=== PATIENT | male | born 1965 | race Caucasian/White ===

== ENCOUNTER 2023-12-26 10:09 | Outpatient (AMB) | payer OTHER, SELFPAY ==
--- NOTE | 2023-12-26 10:10 | A.OFFPC_ITS ---
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 Required: No Accompanied by: Self / Same As Patient Allergies No Known Allergies Allergy (Unverified 12/26/23 10:13) Medication List - Last Reconciled 12/26/23 by Melanie Fraga MD multivitamin 1 tab PO DAILY Tobacco use date assessed: 12/26/23 Dental Screening Dental Screen Date: 12/26/23 Did you have a dental visit in the last 12 months?: No Did you have a dental problem in the last 6 months where you did not have access to dental care?: No Was dental information given to patient?: Yes HPI 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 dizzy 6 month usually before eating breakfast. state occ night sweats, RUQ pain 1 year intermittent no N no v no diet starting it. decline colon test referral for now [facility] Medical History (Updated 12/26/23 @ 10:48 by Melanie Fraga MD) Skin cancer, basal cell Surgical History (Updated 12/26/23 @ 10:28 by Melanie Fraga MD) Hernia, inguinal, right Fracture of wrist Social History (Updated 12/26/23 @ 10:31 by Melanie Fraga MD) Housing: Apartment Alcohol intake: current Comment: once a week 3 beers Patient Tobacco Use Status: Current everyday Tobacco user Tobacco use type: Cigarette Cigarettes Per Day: 7 Years Smoked: VAPING start 11/2023, smoked for 20 years and 5 a day e-Cigarette/Vaping Use: Currently Using (Trying to switch from cigarettes to vaping.) service: No Current occupational status: employed Current occupation: [employer] Cognitive needs: No Hearing needs: No Vision needs: No (Only reading glasses) Questionnaire PHQ-9 Over the last 2 weeks, how often have you been bothered by any of the following problems? 1. Little interest or pleasure in doing things: not at all 2. Feeling down, depressed, or hopeless: not at all 3. Trouble falling or staying asleep, or sleeping too much: several days 4. Feeling tired or having little energy: several days 5. Poor appetite or overeating: not at all 6. Feeling bad about yourself - or that you are a failure or have let yourself or your family down: not at all 7. Trouble concentrating on things, such as reading the newspaper or watching television: not at all 8. Moving or speaking so slowly that other people could have noticed. Or the opposite - being so fidgety or restless that you have been moving around a lot more than usual: not at all 9. Thoughts that you would be better off or of hurting yourself in some way: not at all Total score: 2 49611 - PHQ-9 Billing: Yes Source: Developed by Drs. Sriram Veliz, Fara Rush, Niels Manning and colleagues, with an educational tete from [employer]. Thrive Questionnaire Date Thrive assessed: 12/26/23 I am a: Patient What is your living situation today?: I have a steady place to live Within the past 12 months, did the food you bought not last and you didn't have the money to get more?: Often true Within the past 12 months, did you worry whether your food would run out before you got money to buy more?: Often true Do you have trouble paying for medicines?: No Do you have trouble getting transportation to medical appointments?: No Do you have trouble paying your heating and electricity bill?: No Do you have trouble taking care of your child, family member or friend?: Yes Do you have trouble with day-to-day activities such as bathing, preparing meals, shopping, managing finances, etc.?: No Are you currently unemployed and looking for a job?: Yes Are you interested in more education?: No Please select the resources that you would like help with: Utilities Currently or been in a relationship where the following occur: No concerns reported THRIVE Score: 2 AUDIT C Alcohol Use Questionnaire (AUDIT-C) 1. How often do you have a drink containing alcohol?: 2-4 times a month 2. How many drinks containing alcohol do you have on a typical day when you are drinking?: 1 or 2 3. How often do you have six or more drinks on one occasion?: Never Total Score: 2 PETRA-7 AMB Questionnaire PETRA-7 Date PETRA - 7 assessed: 12/26/23 Feeling nervous, anxious, or on edge: 1 = Several days Not being able to stop or control worryin = Several days Worrying too much about different things: 1 = Several days Trouble relaxin = Several days Being so restless that it is hard to sit still: 1 = Several days Becoming easily annoyed or irritable: 1 = Several days Feeling afraid as if something awful might happen: 0 = Not at all Total PETRA-7 score (0-4 normal; 5-9 mild; 10-14 moderate; 15-21 severe): 6 Source: Developed by Drs. Sriram Veliz, Fara Rush, Niels Manning and colleagues, with an educational tete from [employer]. PETRA-7 Assessment Billing PETRA-7 Assessment Tool: PETRA-7 Assessment 99771 Review of Systems Const Denies poor appetite and Denies weakness Eyes Denies no additional complaints ENT Reports Normal hearing present, Denies dizziness, Denies nasal congestion, Denies tinnitus and Denies sore throat Card Denies chest pain, Denies syncope, Denies rapid heart rate and Denies dyspnea Resp Denies cough and Denies dyspnea GI Denies change in stool character, Reports constipation, Denies diarrhea, Denies nausea and Denies vomiting Denies dysuria and Denies urinary frequency Neuro Reports Normal hearing present, Denies confusion, Denies dizziness, Denies syncope and Denies weakness Psych Denies confusion Physical exam (Primary Care) Vital Signs: Last Vital Signs Pulse 114 H 12/26/23 10:11 BP 132/92 H 12/26/23 10:11 Pulse Ox 92 12/26/23 10:11 Oxygen Delivery Method Room Air 12/26/23 10:11 BMI result Body Mass Index 22.4 Tobacco/Smoking Status: Tobacco use Status Tobacco use date assessed 12/26/23 12/26/23 10:19 Patient Tobacco Use Status Current everyday Tobacco 12/26/23 10:19 Tobacco use type Cigarette 12/26/23 10:19 e-Cigarette/Vaping Use Currently Using (Trying to 12/26/23 10:19 switch from cigarettes to vaping.) PHQ-9: PHQ-9 Score PHQ-9: Total score 2 12/26/23 10:19 Thrive Assessment: Date of Thrive Assessment Date Thrive assessed 12/26/23 12/26/23 10:19 Currently or been in a relationship where the following occur: No concerns reported Const General: alert and awake; No confusion Orientation/consciousness: No confusion HENMT Head: Yes normocephalic Ears: external ears normal and TM's normal bilaterally Face and sinus: Yes normal facial exam Mouth: moist mucous membranes Throat: Yes tonsils normal Eyes Conjunctivae: conjunctivae normal Pupils: Equal, round and reactive pupils present and Pupil accommodation reflex normal Direct Ophthalmoscopy: normal light reflex Neck Neck: No lymphadenopathy Thyroid: Thyroid normal Chest Chest palpation & inspection: normal inspection of the chest Resp Effort & Inspection: normal respiratory effort and no audible wheezes Auscultation: clear to auscultation bilaterally, no crackles, no wheezes and lung sounds not diminished Cardio Rate: regular rate Rhythm: regular rhythm Peripheral pulses: radial pulses present and dorsalis pedis present GI Other: guaiac neg prostate N Palpation (GI): no masses Auscultation: normal bowel sounds and normoactive bowel sounds Male General Exam: Yes normal external exam Back/Spine/Pelvis Back/spine/pelvis image: 2 1. 3 cm mass noted Skin General skin exam: no rashes or lesions noted Rashes: no rashes Neuro General: deep tendon reflexes 2+ bilaterally and No confusion Cranial nerves: Yes Equal, round and reactive pupils present, Yes Midline tongue present, Yes Normal hearing present and Yes Ability to bilaterally elevate shoulders present Cognition (Neuro): normal cognition Gait exam (Neuro): Normal gait present Motor exam (neuro): 5/5 motor strength present throughout Deep tendon reflexes (DTR's): Right brachioradialis reflex intensity grade: 2+, Left brachioradialis reflex intensity grade: 2+, Right patellar reflex intensity grade: 2+ and Left patellar reflex intensity grade: 2+ Extrem General: No edema Assessment and Plan Assessment & Plan (1) Annual physical exam: Code(s): Z00.00 - Encounter for general adult medical examination without abnormal findings (2) Lipoma: Comment: l hip area Code(s): D17.9 - Benign lipomatous neoplasm, unspecified Plan: reassurance and advised changes will need referal to surgeon (3) RUQ abdominal pain: Code(s): R10.11 - Right upper quadrant pain Plan: will do US to do Orders: Orders 2 Comprehensive Met. Panel Today Z00.00 - Encounter for general adult medical examination without abnormal findings Thyroid Stimulating Hormone Today Z00.00 - Encounter for general adult medical examination without abnormal findings Lipid Panel Today E78.00 - Pure hypercholesterolemia, unspecified, Z00.00 - Encounter for general adult medical examination without abnormal findings Vitamin B12 and Folate Today Z00.00 - Encounter for general adult medical examination without abnormal findings ECG 12 lead EKG Today Z00.00 - Encounter for general adult medical examination without abnormal findings Complete Blood Count Auto Diff Today Z00.00 - Encounter for general adult medical examination without abnormal findings Free T4 (Free Thyroxine) Today Z00.00 - Encounter for general adult medical examination without abnormal findings Prostate Specific Antigen Scr Today Z00.00 - Encounter for general adult medical examination without abnormal findings UA CC w/rflx Micro + Cult Today R30.0 - Dysuria, Z00.00 - Encounter for general adult medical examination without abnormal findings US abdomen complete Today R10.11 - Right upper quadrant pain, R79.89 - Other specified abnormal findings of blood chemistry Coding Level of Care Code New Pt Prev Care 40-64y(61707) Diagnoses Annual physical exam Z00.00 Lipoma D17.9 RUQ abdominal pain R10.11 Additional Codes PETRA-7 Assessment Billing - PETRA-7 Assessment Tool: PETRA-7 Assessment 47770 ([id number])
[2023-12-26 10:11] VITALS: BP 132/92; PULSE 114; O2SAT 92; BMI 22.4
[2023-12-26 10:24] VITALS: BP 120/80
== END 2023-12-26 11:01 | disposition home or self-care (01) ==
PROVIDERS: PCP Internal Medicine; Visit Provider Internal Medicine
DX: Z00.00 Encounter for general adult medical examination without abnormal findings (principal); D17.9 Benign lipomatous neoplasm, unspecified; R10.11 Right upper quadrant pain

== ENCOUNTER → 2023-12-26 10:09 | Outpatient (BNVA) | payer OTHER, SELFPAY | PROVIDERS: PCP Internal Medicine; Visit Provider Internal Medicine | DX: Z00.00 Encounter for general adult medical examination without abnormal findings (principal); D17.9 Benign lipomatous neoplasm, unspecified; R10.11 Right upper quadrant pain | CPT/HCPCS: 96127; 99386 ==

== ENCOUNTER 2024-01-02 10:08 | Outpatient (REF) | payer OTHER, SELFPAY ==
--- NOTE | ~2024-01-02 | US_ITS ---
EXAMINATION: US ABDOMEN COMPLETE CLINICAL INFORMATION: Elevated LFTs, right upper quadrant pain. COMPARISON: None available. TECHNIQUE: Real-time imaging of the abdominal viscera. FINDINGS: PANCREAS: The visualized portions of the pancreas are unremarkable but a large portion of the gland is obscured by bowel gas. ABDOMINAL AORTA: The proximal, mid, and distal segments are normal in caliber. INFERIOR VENA CAVA: Visualized portions are normal. LIVER: The liver is probably normal in size. The liver contour is normal. There is diffuse increased liver parenchymal echogenicity, consistent with hepatic steatosis. No focal hepatic lesion. There is no intrahepatic biliary duct dilatation seen. GALLBLADDER: Layering gallstones are present with the largest measuring 1.2 cm. The gallbladder is otherwise unremarkable without wall thickening or pericholecystic fluid. COMMON BILE DUCT: Normal in caliber measuring 0.4 cm in diameter. RIGHT KIDNEY: Normal. No hydronephrosis. No renal calculi or focal parenchymal lesions. The kidney measures 10.3 cm in maximum dimension. LEFT KIDNEY: Normal. No hydronephrosis. No renal calculi or focal parenchymal lesions. The kidney measures 10.6 cm in maximum dimension. SPLEEN: Normal. The spleen measures 7.9 cm in maximum dimension. FREE FLUID: None. US/US abdomen complete IMPRESSION: 1. Cholelithiasis without evidence of cholecystitis. 2. Hepatic steatosis. Electronically signed by: Julio Arteaga MD 02/22/2024 12:44 PM [facility]
== END 2024-01-02 10:09 | disposition home or self-care (01) ==
LOC: HO.US 10:08
PROVIDERS: PCP Internal Medicine; Visit Provider Internal Medicine
DX: R79.89 Other specified abnormal findings of blood chemistry (principal); R10.11 Right upper quadrant pain
CPT/HCPCS: 76700

== ENCOUNTER 2024-02-09 11:23 | Outpatient (REF) | payer OTHER, SELFPAY ==
--- NOTE | 2024-02-09 11:28 | ECG_ITS ---
Test Reason : GEN ADULT MED EXAM Blood Pressure : / mmHG Vent. Rate : 095 BPM Atrial Rate : 095 BPM P-R Int : 146 ms QRS Dur : 092 ms QT Int : 344 ms P-R-T Axes : 065 073 066 degrees QTc Int : 432 ms Normal sinus rhythm Normal ECG No previous ECGs available Referred By: Melanie Fraga Electronically Signed By:GRADY BRADY
[2024-02-09 11:47] LABS: MANUAL DIFF FLAG NO
[2024-02-09 12:32] LABS: Basophils Absolute Auto 0.1 X10*3/uL (0.0-0.2); Basophils Percent Auto 0.7 % (0-2); Eosinophils Absolute Auto 0.6 X10*3/uL (0.0-0.4); Eosinophils Percent Auto 5.2 % (0-4); Hematocrit 47.3 % (42.0-52.0); Hemoglobin 15.8 g/dl (14.0-18.0); Imm Gran Abs Auto 0.05 X10*3/uL (0.00-0.03); Imm Gran Pct Auto 0.4 % (0.0-0.4); Lymphocytes Absolute Auto 2.6 X10*3/uL (1.2-4.9); Lymphocytes Percent Auto 23.1 % (20-40); Mean Corpuscular HGB Conc 33.4 g/dl (31.0-36.0); Mean Corpuscular Hemoglobin 31.2 pg (27.0-33.0); Mean Corpuscular Volume 93.5 fL (80.0-98.0); Mean Platelet Volume 9.3 fL (9.4-12.4); Monocytes Absolute Auto 0.7 X10*3/uL (0.1-1.2); Monocytes Percent Auto 6.3 % (2-11); Neutrophils Absolute Auto 7.2 x10*3/uL (2.0-8.3); Neutrophils Percent Auto 64.3 % (45-73); Platelet Count 357 X10*3/uL (160-400); Red Blood Count 5.06 X10*6/uL (4.60-5.80); Red Cell Distribution Width 13.2 % (11.0-16.0); White Blood Count 11.3 X10*3/uL (4.8-10.8)
[2024-02-09 13:33] LABS: Alanine Aminotransferase 21 U/L (0-40); Albumin Level 4.5 g/dL (3.5-5.0); Alkaline Phosphatase 65 U/L (39-117); Anion Gap 16 (12-20); Aspartate Amino Transferase 30 U/L (5-37); Bilirubin Total 0.4 mg/dL (0.0-1.0); Blood Urea Nitrogen 12 mg/dL (9-16); Calcium 10.1 mg/dL (8.4-10.2); Carbon Dioxide 24 mmol/L (22-29); Chloride 104 mmol/L (96-108); Cholesterol 190 mg/dL (<200); Estimated Glomerular Filt Rate > 60; Glucose Random 91 mg/dL (60-115); HDL Cholesterol 53 mg/dL (>40); LDL Cholesterol Calculated 101 mg/dL (<100); Potassium 4.2 mmol/L (3.3-5.1); Sodium 140 mmol/L (135-145); Total Protein 7.2 g/dL (6.5-8.0); Triglycerides 183 mg/dL (<150)
[2024-02-09 13:50] LABS: Free T4 (Free Thyroxine) 1.02 ng/dL (0.71-1.85); Thyroid Stimulating Hormone 3.43 uIU/mL (0.32-4.0)
[2024-02-09 14:03] LABS: Folate > 20.0 ng/mL (> or = 4.0); Prostate Specific Antigen Scr 1.53 ng/mL (<0.05-4.0); Vitamin B12 305 pg/mL (200-900)
== END 2024-02-09 11:24 | disposition home or self-care (01) ==
LOC: HO.LAB 11:23
PROVIDERS: PCP Internal Medicine; Visit Provider Internal Medicine
DX: Z00.00 Encounter for general adult medical examination without abnormal findings (principal); E78.00 Pure hypercholesterolemia, unspecified
CPT/HCPCS: 36415; 80053; 80061; 82607; 82746; 84153; 84439; 84443; 85025; 93005

== ENCOUNTER → 2024-02-09 11:28 | Outpatient (BNV) | payer OTHER, SELFPAY | PROVIDERS: PCP Internal Medicine; Visit Provider Internal Medicine | DX: E78.00 Pure hypercholesterolemia, unspecified (principal) | CPT/HCPCS: 93010 ==

== ENCOUNTER 2024-03-12 10:13 | Outpatient (AMB) | payer OTHER, SELFPAY ==
--- NOTE | 2024-03-12 10:16 | A.OFFVIS_ITS ---
Vital Signs 03/12/24 10:20 Height 6 ft Weight 174 lb BMI 23.6 BP 151/73 H Blood Pressure Location Rt brachial Position Sitting Pulse 120 H Intake Visit Reasons: Calculus of GB Intake Note: Patient referred by pcp Dr. Fraga for calculus of gallbladder. Noticed about 8m ago. Patient c/o: on and off pain, inflamed stomach, vomiting diarrhea, nausea. ABD US: 01-02-2024. 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 He has epigastric/right upper quadrant pain radiographically his back that happened several hours after meals. He has associated nausea and occasional vomiting. He eventually sought his medical doctor who ordered an ultrasound demonstrated cholelithiasis. Patient otherwise has relatively regular bowel habits. He has never been jaundiced before. 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 Cognitive needs: No Hearing needs: No Vision needs: No (Only reading glasses) Physical Exam Vital Signs: Last Vital Signs Pulse 120 H 03/12/24 10:20 BP 151/73 H 03/12/24 10:20 BMI result Body Mass Index 23.6 Eyes Other: Anicteric Chest Other: Chest breath sounds bilaterally, HS 1 in 2 GI Other: Abdomen is soft, benign Assessment & Plan Assessment & Plan (1) Recurrent biliary colic: Code(s): K80.50 - Calculus of bile duct without cholangitis or cholecystitis without obstruction Category: Surgical Plan Risks, benefits, and alternatives of laparoscopic possible open cholecystectomy reviewed with the patient and included but not limited to bleeding, infection, recurrence of symptoms, numbness, pain, scarring, bowel or bile duct injury or leak and the patient wishes to proceed. All questions answered. Arrangements will be made for this on a day which is convenient for him. Coding Level of Care Code New Pt Level 5 (37248) Diagnoses Recurrent biliary colic K80.50
[2024-03-12 10:20] VITALS: BP 151/73; PULSE 120; BMI 23.6
== END 2024-03-12 10:29 | disposition home or self-care (01) ==
PROVIDERS: PCP Internal Medicine; Referring Provider Internal Medicine; Visit Provider Surgery
DX: K80.50 Calculus of bile duct without cholangitis or cholecystitis without obstruction (principal)
CPT/HCPCS: 99204

== ENCOUNTER → 2024-03-12 10:13 | Outpatient (BNVA) | payer OTHER, SELFPAY | PROVIDERS: PCP Internal Medicine; Referring Provider Internal Medicine; Visit Provider Surgery | DX: K80.50 Calculus of bile duct without cholangitis or cholecystitis without obstruction (principal) | CPT/HCPCS: 99202 ==

== ENCOUNTER 2024-03-28 05:38 | Day surgery (SDC) | payer OTHER, SELFPAY ==
[2024-03-27 06:44] VITALS: BMI 23.7
--- NOTE | 2024-03-27 08:02 | MHC.SHP ---
Pre-Procedural Eval Section A - 24 Hr Update-Section A only Date of Service: 03/28/24 The patient is an INPATIENT: No Changes since office visit: No Cold of Flu in the past 2 weeks, No New Medical Problems, No Changes in Medication and No Patient answered all questions Section B - Complete if H&P > 30 days Chief Complaint: Calculus of bile duct without cholangitis or saúl Allergies: Allergies Allergy/AdvReac Type Severity Reaction Status Date / Time No Known Allergies Allergy Unverified 03/12/24 10:18 Review of Systems Sugical H&P ROS: Negative: Constitution, Cardiovascular, Respiratory, Neurological, Psychiatric, Hem-Onc, Allergic/Immunologic, Gastrointestinal, Genitourinary, Musculoskeletal, Integumentary, Endocrine and Eyes/Ears/Nose/Throat Exam Surgical H&P Exam: Normal: HEENT, Normal: Heart, Normal: Lungs, Normal: Extremities, Normal: Abdomen, Normal: Skin and Normal: Neurological Plan I have reviewed the history and physical and performed a pertinent physical examination on my patient. No changes have occurred unless specified. Time Spent With Patient Time: Total time managing care of this patient today ____ minutes.
--- NOTE | 2024-03-27 10:34 | P.CONAN_ITS ---
Documented by User: Yessica Connell NP 03/27/24 10:35 HPI - Anesthesia Eval Consult details Narrative: 58yo M for Cholecystectomy Laparoscopic,possible open PMFSH Active Problems Active Problems: All Active Problems Recurrent biliary colic (Acute) Hepatic steatosis (Acute) Cholelithiasis (Acute) Lipoma (Acute) RUQ abdominal pain (Acute) Annual physical exam (Acute) Past Medical History Medical History Skin cancer, basal cell Surgical History Surgical History History of mandibular surgery Hernia, inguinal, right Fracture of wrist Social History Social History Housing: Apartment Alcohol intake: current Alcohol intake frequency: holidays/special occasions only Comment: once a week 3 beers Patient Tobacco Use Status: Current everyday Tobacco user Tobacco use type: Cigarette Cigarettes Per Day: 7 Years Smoked: VAPING start 11/2023, smoked for 20 years and 5 a day e-Cigarette/Vaping Use: Currently Using (Trying to switch from cigarettes to vaping.) Have you been hit, kicked, punched, or otherwise hurt by someone within the past year? 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 Cognitive needs: No Hearing needs: No Vision needs: No (Only reading glasses) Meds Allergies Allergy/AdvReac Type Severity Reaction Status Date / Time No Known Allergies Allergy Unverified 03/12/24 10:18 Home Medications ?Medication ?Instructions ?Recorded ?Confirmed ?Last Taken ?Type multivitamin 1 tab PO DAILY 12/26/23 03/28/24 03/27/24 History Exam Height,Weight and Vital Signs: Height 6 ft Weight 79.379 kg Pertinent Lab Results Pertinent Lab Results: Laboratory Tests 02/09/24 11:45 WBC 11.3 H RBC 5.06 Hgb 15.8 Hct 47.3 Plt Count 357 Sodium 140 Potassium 4.2 Chloride 104 Carbon Dioxide 24 BUN 12 Creatinine 1.03 Narrative Narrative: EKG 02/2024 Vent. Rate : 095 BPM Atrial Rate : 095 BPM P-R Int : 146 ms QRS Dur : 092 ms QT Int : 344 ms P-R-T Axes : 065 073 066 degrees QTc Int : 432 ms Normal sinus rhythm Normal ECG No previous ECGs available Assessment and Plan Assessment Anesthesia Assessment: Chart Reviewed Documented by User: Romy Adamson MD 03/28/24 07:34 [facility] Past Medical History Medical History Skin cancer, basal cell Family History Family history of problems with anesthesia: No Surgical History Surgical History History of mandibular surgery Hernia, inguinal, right Fracture of wrist History of Problems with Anesthesia: No Social History Social History Housing: Apartment Alcohol intake: current Alcohol intake frequency: holidays/special occasions only Comment: once a week 3 beers Patient Tobacco Use Status: Current everyday Tobacco user Tobacco use type: Cigarette Cigarettes Per Day: 7 Years Smoked: VAPING start 11/2023, smoked for 20 years and 5 a day e-Cigarette/Vaping Use: Currently Using (Trying to switch from cigarettes to vaping.) Have you been hit, kicked, punched, or otherwise hurt by someone within the past year? 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 Cognitive needs: No Hearing needs: No Vision needs: No (Only reading glasses) Meds Allergies Allergy/AdvReac Type Severity Reaction Status Date / Time No Known Allergies Allergy Unverified 03/12/24 10:18 Home Medications ?Medication ?Instructions ?Recorded ?Confirmed ?Last Taken ?Type multivitamin 1 tab PO DAILY 12/26/23 03/28/2424 History Exam Airway Mallampati Class: II TM Dist: >3cm Neck ROM: Full Heart: rrr Lungs: cta Assessment and Plan Assessment Anesthesia Assessment: Anesthesia Plan Discussed Final Anesthetic Review Family History of Problems with Anesthesia: No History of Problems with Anesthesia: No NPO: Yes ASA Class: II Final Preanesthetic Review: No Changes in Pt Med Stat, Meds/Allgs Chart Reviewed, Consent Obtained/Reviewed and Anes Risks/Benef Reviewed Patient Risk: Low Procedure Risk: Low Anesthetic Plan Anesthetic Plan: GA Disposition: Standard PACU
[2024-03-28] VITALS (7 sets, daily range): BP systolic 123–161; BP diastolic 73–101; PULSE 51–77; RESP 16–20; TEMP 36.3–36.9; O2SAT 97–99; BMI 24.0
[2024-03-28] MEDS: Lactated Ringers 1,000 ML 100 ML IVCONT (06:28)
--- NOTE | 2024-03-28 08:41 | W.PM.OPN ---
Operative Note Operative Note Date of Service: 03/28/24 Narrative: Preoperative diagnosis: [] Symptomatic gallbladder Postop diagnosis: [] The same Procedure [] laparoscopic cholecystectomy Surgeon: [] Mina Contract Negotiation Manager: [] Victor M Type of Anesthesia: [] General Indication for surgery: [] Gallbladder with omental adhesions to it. Moderately intrahepatic gallbladder. Findings: [] Patient brought to the operating room, placed on operative table supine position, after an adequate level of general anesthesia was induced, the patient's abdomen was prepped and draped in usual sterile fashion. Using a supraumbilical curvilinear incision, Stout technique was used to insufflate abdominal cavity to 15 mm of CO2. Upper midline and right subcostal ports were placed under direct laparoscopic view, and the patient placed in reverse Trendelenburg position, and tilted to the left. Findings were as noted above. Gallbladder was grasped using laparoscopic graspers and retracted superiorly and laterally. Soft omental adhesions were swept off the gallbladder were the hilum was approached. Common bile duct was identified and preserved throughout the procedure. Cystic artery and cystic duct were each identified, circumferentially skeletonized, traced directly into the gallbladder, and critical view obtained. Each was clipped proximally x2, distally x1, and transected . The gallbladder which was moderately intrahepatic was then cauterized from the gallbladder fossa using Bovie. Specimen placed in an Endo-Catch bag, a retrieved through the umbilical port. Abdominal cavity was copiously irrigated and secured hemostasis. All ports removed under direct laparoscopic view. Wounds were closed in the following manner; umbilical wound is fascia reapproximated using interrupted 0 Vicryl sutures. Skin wounds were closed using subcuticular 4-0 Vicryl sutures followed by Steri-Strips and sterile dressings. Wounds were infiltrated 0.5% Marcaine at completion. Sponge, needle, and instrument counts reported correct. Patient tolerated the procedure well and emerged from anesthesia stable condition. EBL minimal
[2024-03-28] MEDS: fentaNYL citrate/PF 100 MCG/2 ML VIAL 25 MCG IVPUSH ×2 (08:49→09:04)
== END 2024-03-28 10:02 | disposition home or self-care (01) ==
PROVIDERS: PCP Internal Medicine; Visit Provider Surgery
PROC: 0FT44ZZ Resection of Gallbladder, Percutaneous Endoscopic Approach (ICD-10-PCS; CPT 47562; principal; 2024-03-28 07:30)
DX: K80.10 Calculus of gallbladder with chronic cholecystitis without obstruction (principal); K82.8 Other specified diseases of gallbladder; Q44.1 Other congenital malformations of gallbladder; Z85.828 Personal history of other malignant neoplasm of skin; Z98.890 Other specified postprocedural states; F17.210 Nicotine dependence, cigarettes, uncomplicated
CPT/HCPCS: 47562; 88304; J0131; J0690; J1100; J1596; J1885; J2003; J2405; J2704; J2710; J2795; J3010

== ENCOUNTER → 2024-03-28 05:38 | Outpatient (BNV) | payer OTHER, SELFPAY | PROVIDERS: PCP Internal Medicine; Visit Provider Surgery | DX: K80.20 Calculus of gallbladder without cholecystitis without obstruction (principal) | CPT/HCPCS: 47562 ==

== ENCOUNTER 2024-04-08 11:33 | Outpatient (AMB) | payer OTHER, SELFPAY ==
--- NOTE | 2024-04-08 11:34 | A.OFFVIS_ITS ---
Intake Visit Reasons: S/P lap saúl Intake Note: Patient here s/p laparoscopic cholecystectomy. Reports incisions healing well. Patient c/o: taking rx pain meds as needed. Pain level 04/19. Surgery: 03-28-2024 Hand Rug Cleaner Required: No Accompanied by: Self / Same As Patient Allergies No Known Allergies Allergy (Unverified 04/08/24 11:36) HPI Comments Details: Patient was status post laparoscopic cholecystectomy. He is doing well. Starting a diet. Having regular bowel habits. It is increasing the tibial level. He is minimal incisional discomfort. Patient was a left hip lipoma which she would like to have addressed as well. [facility] Medical History (Updated 03/29/24 @ 17:41 by Melanie Fraga MD) Skin cancer, basal cell Surgical History (Updated 04/08/24 @ 13:51 by Lionel Enriquez MD) Recurrent biliary colic (03/28/24) History of mandibular surgery Hernia, inguinal, right Fracture of wrist Social History Housing: Apartment Alcohol intake: current Alcohol intake frequency: holidays/special occasions only Comment: once a week 3 beers Patient Tobacco Use Status: Current everyday Tobacco user Tobacco use type: Cigarette Cigarettes Per Day: 7 Years Smoked: VAPING start 11/2023, smoked for 20 years and 5 a day e-Cigarette/Vaping Use: Currently Using (Trying to switch from cigarettes to vaping.) service: No Current occupational status: employed Current occupation: [employer] Cognitive needs: No Hearing needs: No Vision needs: No (Only reading glasses) Physical Exam Eyes Other: Anicteric GI Other: Abdomen is soft, benign. All wounds clean dry and intact healing well Extrem Other: Patient has a left lateral hip soft tissue mass measuring roughly 4 x 3 cm consistent with a lipoma Assessment & Plan Assessment & Plan (1) Status post laparoscopic cholecystectomy: Code(s): Z90.49 - Acquired absence of other specified parts of digestive tract Category: Surgical (2) Lipoma: Code(s): D17.9 - Benign lipomatous neoplasm, unspecified Category: Surgical Plan Patient was been given local instructions regarding continued convalescence from his hernia repair including avoiding strenuous activities next few weeks time. Patient will follow-up in few weeks time for excision of his left hip lipoma in the office. All questions answered. Patient was see me as noted above were p.r.n.. Coding Level of Care Code Tele New Pt Level 4 (29813) Global (52433) Diagnoses Status post laparoscopic cholecystectomy Z90.49 Lipoma D17.9
== END 2024-04-08 11:44 | disposition home or self-care (01) ==
PROVIDERS: PCP Internal Medicine; Visit Provider Surgery
DX: Z90.49 Acquired absence of other specified parts of digestive tract (principal); D17.9 Benign lipomatous neoplasm, unspecified
CPT/HCPCS: 99024

== ENCOUNTER → 2024-04-08 11:33 | Outpatient (BNVA) | payer OTHER, SELFPAY | PROVIDERS: PCP Internal Medicine; Visit Provider Surgery | DX: Z09 Encounter for follow-up examination after completed treatment for conditions other than malignant neoplasm (principal); Z90.49 Acquired absence of other specified parts of digestive tract | CPT/HCPCS: 99212 ==

== ENCOUNTER 2024-04-09 14:08 | Outpatient (AMB) | payer OTHER, SELFPAY ==
[2024-04-09 14:13] VITALS: BP 118/74; PULSE 84; O2SAT 96; BMI 23.4
--- NOTE | 2024-04-09 14:13 | MHC.PC.OV ---
Vital Signs 04/09/24 14:13 Height 6 ft Weight 172 lb 6 oz BMI 23.4 BP 118/74 Blood Pressure Location Lt brachial Position Sitting Pulse 84 Pulse Source Pulse Oximeter Pulse Oximetry (%) 96 Oxygen Delivery Method Room Air Intake Visit Reasons: RUQ pain Allergies No Known Allergies Allergy (Verified 04/09/24 14:16) Tobacco use date assessed: 04/09/24 Dental Screening Dental Screen Date: 04/09/24 Did you have a dental visit in the last 12 months?: No Did you have a dental problem in the last 6 months where you did not have access to dental care?: No Was dental information given to patient?: Patient declined HPI RUQ pain HPI Details The patient is a 58-year-old male presenting with post-cholecystectomy follow-up and evaluation of a lipoma. The patient underwent gallbladder removal due to previous symptoms and reports an improvement in health post-surgery, notably an absence of heart pain that was previously present. He experiences minimal post-surgical pain which has been managed with hydrocodone, although he uses it sparingly to avoid constipation. He was advised about potential dietary impacts on bowel movements due to absence of bile storage, specifically an increase in diarrhea with high-fat meals, which he is currently avoiding. The patient reports having discontinued fast food and fried food, and relies minimally on pizza and soda, maintaining dietary modifications to manage hepatic steatosis revealed during prior ultrasound indicating fat in the liver. He is scheduled to have a benign lipoma removed from his thigh on the as it was one of the reasons for his consultation. Recent laboratory evaluations showed no anemia with good platelet count, and optimal cholesterol levels with LDL at 101, HDL at 53, and triglycerides slightly elevated at 183. B12, folic acid, and thyroid function are within normal limits. The patient states he feels well and his recent EKG results were normal. He consciously maintains a healthy lifestyle avoiding alcohol and processed food to manage his hepatic steatosis. The patient also confirms he does not participate in flu or COVID vaccinations. [facility], [facility] Medical History Skin cancer, basal cell Surgical History Recurrent biliary colic (03/28/24) History of mandibular surgery Hernia, inguinal, right Fracture of wrist Social History (Reviewed 04/09/24 @ 14:16 by СЕРГЕЙ Ortiz Housing: Apartment Alcohol intake: current Alcohol intake frequency: holidays/special occasions only Comment: once a week 3 beers Patient Tobacco Use Status: Current everyday Tobacco user Tobacco use type: Cigarette Cigarettes Per Day: 7 Years Smoked: VAPING start 11/2023, smoked for 20 years and 5 a day e-Cigarette/Vaping Use: Currently Using (Trying to switch from cigarettes to vaping.) service: No Current occupational status: employed Current occupation: [employer] Cognitive needs: No Hearing needs: No Vision needs: No (Only reading glasses) Questionnaire PHQ-9 Over the last 2 weeks, how often have you been bothered by any of the following problems? 1. Little interest or pleasure in doing things: not at all 2. Feeling down, depressed, or hopeless: not at all 3. Trouble falling or staying asleep, or sleeping too much: several days 4. Feeling tired or having little energy: several days 5. Poor appetite or overeating: not at all 6. Feeling bad about yourself - or that you are a failure or have let yourself or your family down: not at all 7. Trouble concentrating on things, such as reading the newspaper or watching television: not at all 8. Moving or speaking so slowly that other people could have noticed. Or the opposite - being so fidgety or restless that you have been moving around a lot more than usual: not at all 9. Thoughts that you would be better off or of hurting yourself in some way: not at all Total score: 2 54029 - PHQ-9 Billing: Yes Source: Developed by Drs. Sriram Veliz, Fara Rush, Niels Manning and colleagues, with an educational tete from [employer]. Thrive Questionnaire Date Thrive assessed: 04/09/24 I am a: Patient What is your living situation today?: I have a steady place to live Within the past 12 months, did the food you bought not last and you didn't have the money to get more?: Often true Within the past 12 months, did you worry whether your food would run out before you got money to buy more?: Often true Do you have trouble paying for medicines?: No Do you have trouble getting transportation to medical appointments?: No Do you have trouble paying your heating and electricity bill?: No Do you have trouble taking care of your child, family member or friend?: Yes Do you have trouble with day-to-day activities such as bathing, preparing meals, shopping, managing finances, etc.?: No Are you currently unemployed and looking for a job?: Yes Are you interested in more education?: No Please select the resources that you would like help with: Utilities Currently or been in a relationship where the following occur: No concerns reported THRIVE Score: 2 AUDIT C Alcohol Use Questionnaire (AUDIT-C) 1. How often do you have a drink containing alcohol?: 2-4 times a month 2. How many drinks containing alcohol do you have on a typical day when you are drinking?: 1 or 2 3. How often do you have six or more drinks on one occasion?: Never Total Score: 2 PETRA-7 AMB Questionnaire PETRA-7 Date PETRA - 7 assessed: 04/09/24 Feeling nervous, anxious, or on edge: 1 = Several days Not being able to stop or control worryin = Several days Worrying too much about different things: 1 = Several days Trouble relaxin = Several days Being so restless that it is hard to sit still: 1 = Several days Becoming easily annoyed or irritable: 1 = Several days Feeling afraid as if something awful might happen: 0 = Not at all Total PETRA-7 score (0-4 normal; 5-9 mild; 10-14 moderate; 15-21 severe): 6 Source: Developed by Drs. Sriram Veliz, Fara Rush, Niels Manning and colleagues, with an educational tete from [employer]. PETRA-7 Assessment Billing PETRA-7 Assessment Tool: PETRA-7 Assessment 71845 Physical exam (Primary Care) Vital Signs: Last Vital Signs Pulse 84 04/09/24 14:13 BP 118/74 04/09/24 14:13 Pulse Ox 96 04/09/24 14:13 Oxygen Delivery Method Room Air 04/09/24 14:13 BMI result Body Mass Index 23.4 Tobacco/Smoking Status: Tobacco use Status Tobacco use date assessed 04/09/24 04/09/24 14:17 Patient Tobacco Use Status Current everyday Tobacco 04/09/24 14:17 Tobacco use type Cigarette 04/09/24 14:17 e-Cigarette/Vaping Use Currently Using (Trying to 04/09/24 14:17 switch from cigarettes to vaping.) PHQ-9: PHQ-9 Score PHQ-9: Total score 2 04/09/24 14:17 Thrive Assessment: Date of Thrive Assessment Date Thrive assessed 04/09/24 04/09/24 14:17 Currently or been in a relationship where the following occur: No concerns reported Const General: alert; No acute distress Eyes Conjunctivae: conjunctivae normal Resp Auscultation: clear to auscultation bilaterally Cardio Rate: regular rate Rhythm: regular rhythm GI Inspection: Yes normal to inspection Extrem General: Yes normal to inspection and No edema Coding Level of Care Code Est Pt Level 4 (76652) Diagnoses Status post laparoscopic cholecystectomy Z90.49 Lipoma D17.9 Hepatic steatosis K76.0 Additional Codes PETRA-7 Assessment Billing - PETRA-7 Assessment Tool: PETRA-7 Assessment 14140 ([id number]) PHQ-9 - 58268 - PHQ-9 Billing: Yes ([id number]) Assessment & Plan Assessment & Plan (1) Status post laparoscopic cholecystectomy: Code(s): Z90.49 - Acquired absence of other specified parts of digestive tract Category: Surgical Plan: dicusssion about low fat diet (2) Lipoma: Code(s): D17.9 - Benign lipomatous neoplasm, unspecified Category: Surgical Plan: ff up with the surgeon (3) Hepatic steatosis: Code(s): K76.0 - Fatty (change of) liver, not elsewhere classified Category: Medical Plan: low fat diet and exercise Plan - Post-cholecystectomy state: Continue monitoring bowel movement's response to dietary intake. Instruct the patient to avoid high-fat foods to prevent diarrhea. - Hepatic steatosis: Encourage continued healthy diet avoiding fatty and processed foods, support weight management strategies to mitigate progression. - Lipoma of the thigh: Scheduled for surgical removal on the ; no acute interventions required before that. - Hypertriglyceridemia: Reinforce dietary counseling with emphasis on reduced intake of triglyceride-raising foods. - Ensure follow-up for full physical examination as part of ongoing health maintenance. - Discuss and encourage the patient on the importance of vaccination during upcoming flu season along with ongoing COVID-19 considerations. Medications: Discontinued hydrocodone-acetaminophen 5-325 mg Partial Fill upon patient request. Discontinued Reason: Duplicate 1 tab PO Q4-6H PRN 30 tabs 0RF pain
== END 2024-04-09 14:33 | disposition home or self-care (01) ==
PROVIDERS: PCP Internal Medicine; Visit Provider Internal Medicine
DX: Z90.49 Acquired absence of other specified parts of digestive tract (principal); D17.9 Benign lipomatous neoplasm, unspecified; K76.0 Fatty (change of) liver, not elsewhere classified

== ENCOUNTER 2024-04-22 09:19 | Outpatient (REF) | payer OTHER, SELFPAY | END 2024-04-22 09:20 | disposition home or self-care (01) | LOC: HO.LNP 09:19 | PROVIDERS: PCP Internal Medicine; Visit Provider Surgery | DX: D17.24 Benign lipomatous neoplasm of skin and subcutaneous tissue of left leg (principal) | CPT/HCPCS: 11404; 88304; 99212 ==

== ENCOUNTER 2024-04-22 09:19 | Outpatient (AMB) | payer OTHER, SELFPAY ==
--- NOTE | 2024-04-22 09:24 | A.OFFVIS_ITS ---
Vital Signs 04/22/24 09:25 Height 6 ft Weight 172 lb BMI 23.3 BP 120/76 Blood Pressure Location Rt brachial Position Sitting Pulse 82 Intake Visit Reasons: excision lipoma Intake Note: Patient here for lipoma excision on Lt hip. 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 Risks, benefits, alternatives of the procedure reviewed with the patient included but not limited to bleeding, infection, recurrence, numbness, pain, scarring the patient wished to proceed. All questions answered. Consent site. [facility] Medical History Skin cancer, basal cell Surgical History Recurrent biliary colic (03/28/24) History of mandibular surgery Hernia, inguinal, right Fracture of wrist Social History Housing: Apartment Alcohol intake: current Alcohol intake frequency: holidays/special occasions only Comment: once a week 3 beers Patient Tobacco Use Status: Current everyday Tobacco user Tobacco use type: Cigarette Cigarettes Per Day: 7 Years Smoked: VAPING start 11/2023, smoked for 20 years and 5 a day e-Cigarette/Vaping Use: Currently Using (Trying to switch from cigarettes to vaping.) service: No Current occupational status: employed Current occupation: [employer] Cognitive needs: No Hearing needs: No Vision needs: No (Only reading glasses) Physical Exam Vital Signs: Last Vital Signs Pulse 82 04/22/24 09:25 BP 120/76 04/22/24 09:25 BMI result Body Mass Index 23.3 Office Procedures Excision Details: After appropriate positioning, patient underwent 1% lidocaine Betadine prep of the left hip area lipoma. A longitudinal incision made over this mass and carried down through skin, subcutaneous tissue, were very deeply situated lipoma measuring roughly 4 x 3 cm was uneventfully enucleated. Specimen sent to pathology. Wound was irrigated, secured hemostasis, and closed using running subcuticular 3-0 Vicryl suture followed by Steri-Strips and sterile dressings. Patient tolerated procedure well. 53082-ypncg/arms/legs 3.1-4cm Procedure code (CPT) selection complete Office Meds lidocaine 1 %-epinephrine 1:100,000 injection solution Performing Provider: Lionel Enriquez MD Performing Location: [facility] [place] [facility] [place] [facility] Administered by: Lionel Enriquez MD on 04/22/24 09:57 Dose Route Admin Location Dispensed Lot Number Expiration Date NDC Electrical Checkout Mechanic 10 mL Infiltration 10 mL Assessment & Plan Assessment & Plan (1) Lipoma: Code(s): D17.9 - Benign lipomatous neoplasm, unspecified Category: Surgical Plan: Patient was been given local instructions including ice of the wound, may shower in 2 days, Tylenol or Motrin for pain, and will otherwise follow-up as directed or p.r.n.. Orders: Orders AMB Excision Today .9 - Benign lipomatous neoplasm, unspecified Medications: New lidocaine-epinephrine 1 %-1:100,000 10 mL Infiltration ONCE 30 mL 0RF D1.9 - Benign lipomatous neoplasm, unspecified Coding Level of Care Code Est Pt Level 5 (76024) Diagnoses Lipoma D1. CPT Codes Trunk/Arms/Legs - CPT: 08066-yxdfm/arms/legs 3.1-4cm ([id number])
[2024-04-22 09:25] VITALS: BP 120/76; PULSE 82; BMI 23.3
== END 2024-04-22 09:53 | disposition home or self-care (01) ==
PROVIDERS: PCP Internal Medicine; Visit Provider Surgery
DX: D17.24 Benign lipomatous neoplasm of skin and subcutaneous tissue of left leg (principal)
CPT/HCPCS: 11404; 99214

== ENCOUNTER 2024-04-30 09:44 | Outpatient (AMB) | payer OTHER, SELFPAY ==
--- NOTE | 2024-04-30 09:50 | A.OFFVIS_ITS ---
Intake Visit Reasons: s/p excision lipoma Intake Note: Patient here s/p lipoma excision on Lt hip. Reports incision healing well. Patient c/o: bruising. Denies pain, oozing, itch. 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 No wound issues or complaints [facility] Medical History Skin cancer, basal cell Surgical History Recurrent biliary colic (03/28/24) History of mandibular surgery Hernia, inguinal, right Fracture of wrist Social History Housing: Apartment Alcohol intake: current Alcohol intake frequency: holidays/special occasions only Comment: once a week 3 beers Patient Tobacco Use Status: Current everyday Tobacco user Tobacco use type: Cigarette Cigarettes Per Day: 7 Years Smoked: VAPING start 11/2023, smoked for 20 years and 5 a day e-Cigarette/Vaping Use: Currently Using (Trying to switch from cigarettes to vaping.) service: No Current occupational status: employed Current occupation: [employer] Cognitive needs: No Hearing needs: No Vision needs: No (Only reading glasses) Physical Exam Extrem Other: Incision healing very well. Some ecchymosis which will resolve. Assessment & Plan Assessment & Plan (1) Status post excision of lipoma: Code(s): Z98.890 - Other specified postprocedural states; Z86.018 - Personal history of other benign neoplasm Category: Medical Plan Patient was been given local instructions, and will otherwise follow-up p.r.n.. All questions answered. Coding Level of Care Code Global (05145) Diagnoses Status post excision of lipoma Z98.890; Z86.018
== END 2024-04-30 10:08 | disposition home or self-care (01) ==
PROVIDERS: PCP Internal Medicine; Visit Provider Surgery
DX: Z98.890 Other specified postprocedural states (principal); Z86.018 Personal history of other benign neoplasm
CPT/HCPCS: 99024

== ENCOUNTER → 2024-04-30 09:44 | Outpatient (BNVA) | payer OTHER, SELFPAY | PROVIDERS: PCP Internal Medicine; Visit Provider Surgery | DX: Z09 Encounter for follow-up examination after completed treatment for conditions other than malignant neoplasm (principal); Z98.890 Other specified postprocedural states; Z86.018 Personal history of other benign neoplasm | CPT/HCPCS: 99212 ==

== ENCOUNTER → 2024-12-31 12:47 | Outpatient (BNVA) | payer OTHER, SELFPAY | PROVIDERS: PCP Internal Medicine; Visit Provider Internal Medicine | DX: Z00.00 Encounter for general adult medical examination without abnormal findings (principal); R10.30 Lower abdominal pain, unspecified; M25.551 Pain in right hip; M25.512 Pain in left shoulder; G47.00 Insomnia, unspecified; E78.00 Pure hypercholesterolemia, unspecified; K76.0 Fatty (change of) liver, not elsewhere classified; R42 Dizziness and giddiness; J30.9 Allergic rhinitis, unspecified; R30.0 Dysuria | CPT/HCPCS: 99396 ==

== ENCOUNTER → 2024-12-31 12:47 | Outpatient (AMB) | payer OTHER, SELFPAY ==
--- NOTE | 2024-12-31 13:14 | MHC.PC.OV ---
Vital Signs 12/31/24 13:16 Height 6 ft Weight 169 lb 8 oz BMI 23.0 BP 122/68 Blood Pressure Location Lt brachial Position Sitting Pulse 101 H Pulse Source Pulse Oximeter Temp 97.5 F Temp Source Temporal Artery Scan Pulse Oximetry (%) 98 Oxygen Delivery Method Room Air Intake Visit Reasons: Annual Exam Intake Note: Patient is here today for a physical. Blood Donor Unit Assistant Required: No Architectural Practice Manager: Not Required per policy Accompanied by: Self / Same As Patient Allergies No Known Allergies Allergy (Verified 12/31/24 13:16) Medication List - Last Reconciled 12/31/24 by Melanie Fraga MD multivitamin 1 tab PO DAILY Tobacco use date assessed: 12/31/24 Dental Screening Dental Screen Date: 12/31/24 Did you have a dental visit in the last 12 months?: No Did you have a dental problem in the last 6 months where you did not have access to dental care?: No Was dental information given to patient?: No HPI Annual Exam HPI Details sleeping problem, gets nause in am. fall 6 months ago and hurst R hip and L shoulder with groin pain FOR[facility]LY [facility], [facility] Medical History (Updated 12/31/24 @ 14:01 by Melanie Fraga MD) Skin cancer, basal cell Surgical History (Updated 12/31/24 @ 13:38 by Melanie Fraga MD) Recurrent biliary colic (03/28/24) History of mandibular surgery Hernia, inguinal, right Fracture of wrist Family History (Updated 12/31/24 @ 13:39 by Melanie Fraga MD) Mother Small cell carcinoma Social History (Updated 12/31/24 @ 13:40 by Melanie Fraga MD) Housing: Apartment Alcohol intake: current Alcohol intake frequency: holidays/special occasions only Comment: 2 beers a month Patient Tobacco Use Status: Former Tobacco user (2023) Tobacco use type: Cigarette Cigarettes Per Day: 7 Years Smoked: VAPING start 11/2023, smoked for 20 years and 5 a day. stopped 2023 e-Cigarette/Vaping Use: Never Used (Trying to switch from cigarettes to vaping.) Second Hand Smoke Exposure: Yes service: No Current occupational status: employed Current occupation: [employer] Cognitive needs: No Hearing needs: No Vision needs: No (Only reading glasses) Questionnaire PHQ-9 Over the last 2 weeks, how often have you been bothered by any of the following problems? 1. Little interest or pleasure in doing things: not at all 2. Feeling down, depressed, or hopeless: several days 3. Trouble falling or staying asleep, or sleeping too much: not at all 4. Feeling tired or having little energy: not at all 5. Poor appetite or overeating: not at all 6. Feeling bad about yourself - or that you are a failure or have let yourself or your family down: not at all 7. Trouble concentrating on things, such as reading the newspaper or watching television: not at all 8. Moving or speaking so slowly that other people could have noticed. Or the opposite - being so fidgety or restless that you have been moving around a lot more than usual: not at all 9. Thoughts that you would be better off or of hurting yourself in some way: not at all Total score: 1 Depression Screening Interpretation: Positive Depression Screening Done: Yes Source: Developed by Drs. Sriram Veliz, Fara Rush, Niels Manning and colleagues, with an educational tete from [employer]. Thrive Questionnaire Date Thrive assessed: 12/25/24 I am a: Patient What is your living situation today?: I have a place to live, but I am worried about losing it in the future Within the past 12 months, did the food you bought not last and you didn't have the money to get more?: Often true Within the past 12 months, did you worry whether your food would run out before you got money to buy more?: Often true Do you have trouble paying for medicines?: No Do you have trouble getting transportation to medical appointments?: No Do you have trouble paying your heating and electricity bill?: Yes Do you have trouble taking care of your child, family member or friend?: No Do you have trouble with day-to-day activities such as bathing, preparing meals, shopping, managing finances, etc.?: No Are you currently unemployed and looking for a job?: Yes Are you interested in more education?: No Please select the resources that you would like help with: Housing/Long Term and Transportation Currently or been in a relationship where the following occur: No concerns reported THRIVE Score: 4 AUDIT C Alcohol Use Questionnaire (AUDIT-C) 1. How often do you have a drink containing alcohol?: 2-4 times a month 2. How many drinks containing alcohol do you have on a typical day when you are drinking?: 1 or 2 3. How often do you have six or more drinks on one occasion?: Never Total Score: 2 PETRA-7 AMB Questionnaire PETAR-7 Date PETRA - 7 assessed: 12/31/24 Feeling nervous, anxious, or on edge: 1 = Several days Not being able to stop or control worryin = Several days Worrying too much about different things: 1 = Several days Trouble relaxin = Nearly every day Being so restless that it is hard to sit still: 0 = Not at all Becoming easily annoyed or irritable: 0 = Not at all Feeling afraid as if something awful might happen: 1 = Several days Total PETRA-7 score (0-4 normal; 5-9 mild; 10-14 moderate; 15-21 severe): 7 Source: Developed by Drs. Sriram Veliz, Fara Rush, Niels Manning and colleagues, with an educational tete from [employer]. Review of Systems Const Denies poor appetite and Denies weakness Eyes Denies no additional complaints ENT Reports Normal hearing present, Denies dizziness, Denies nasal congestion, Denies tinnitus and Denies sore throat Card Denies chest pain, Denies syncope, Denies rapid heart rate and Denies dyspnea Resp Denies cough and Denies dyspnea GI Denies change in stool character, Reports constipation, Denies diarrhea, Denies nausea and Denies vomiting Denies dysuria and Denies urinary frequency Neuro Reports Normal hearing present, Denies confusion, Denies dizziness, Denies syncope and Denies weakness Psych Denies confusion Physical exam (Primary Care) Vital Signs: Last Vital Signs Temp 97.5 F 12/31/24 13:16 Pulse 101 H 12/31/24 13:16 BP 122/68 12/31/24 13:16 Pulse Ox 98 12/31/24 13:16 Oxygen Delivery Method Room Air 12/31/24 13:16 BMI result Body Mass Index 23.0 Tobacco/Smoking Status: Tobacco use Status Tobacco use date assessed 12/31/24 12/31/24 13:23 Patient Tobacco Use Status Former Tobacco user (2023) 12/31/24 13:40 Tobacco use type Cigarette 12/31/24 13:40 e-Cigarette/Vaping Use Never Used (Trying to switch 12/31/24 13:40 from cigarettes to vaping.) PHQ-9: PHQ-9 Score PHQ-9: Total score 1 12/31/24 13:35 Depression Screening Interpretation: Positive Thrive Assessment: Date of Thrive Assessment Date Thrive assessed 12/25/24 12/31/24 13:23 Currently or been in a relationship where the following occur: No concerns reported Const General: No confusion Orientation/consciousness: No confusion HENMT Head: Yes normocephalic Ears: external ears normal and TM's normal bilaterally Face and sinus: Yes normal facial exam Mouth: moist mucous membranes Throat: Yes tonsils normal Eyes Conjunctivae: conjunctivae normal Pupils: Equal, round and reactive pupils present and Pupil accommodation reflex normal Direct Ophthalmoscopy: normal light reflex Neck Neck: No lymphadenopathy Thyroid: Thyroid normal Chest Chest palpation & inspection: normal inspection of the chest Resp Effort & Inspection: normal respiratory effort and no audible wheezes Auscultation: clear to auscultation bilaterally, no crackles, no wheezes and lung sounds not diminished Cardio Rate: regular rate Rhythm: regular rhythm Peripheral pulses: radial pulses present and dorsalis pedis present GI Other: guaiac negative prostate N Palpation (GI): no masses Auscultation: normal bowel sounds and normoactive bowel sounds Male General Exam: Yes normal external exam Skin General skin exam: no rashes or lesions noted Rashes: no rashes Neuro General: No confusion Cranial nerves: Yes Equal, round and reactive pupils present and Yes Normal hearing present Cognition (Neuro): normal cognition Gait exam (Neuro): Normal gait present Motor exam (neuro): 5/5 motor strength present throughout Deep tendon reflexes (DTR's): Right brachioradialis reflex intensity grade: 2+, Left brachioradialis reflex intensity grade: 2+, Right patellar reflex intensity grade: 2+ and Left patellar reflex intensity grade: 2+ Extrem General: No edema Coding Level of Care Code Est Pt Prev Care 40-64y(37082) Diagnoses Annual physical exam Z00.00 Hepatic steatosis K76.0 Hypercholesterolemia E78.00 Colon cancer screening Z12.11 Shoulder pain, left M25.512 Right hip pain M25.551 Insomnia G47.00 Assessment & Plan Assessment & Plan (1) Annual physical exam: Code(s): Z00.00 - Encounter for general adult medical examination without abnormal findings Category: Medical Plan: Patient is advised to eat healthy, keep well hydrated, keep active and have adequate sleep. (2) Hepatic steatosis: Code(s): K76.0 - Fatty (change of) liver, not elsewhere classified Category: Medical Plan: Low-fat diet and exercise (3) Hypercholesterolemia: Code(s): E78.00 - Pure hypercholesterolemia, unspecified Category: Medical Plan: Avoid fried foods, chicken skin, eggs, butter margarine, pastries and meat. Be it pork or beef they have a lot of cholesterol LDL goal of less than 130 and triglyceride of less than 150 (4) Colon cancer screening: Code(s): Z12.11 - Encounter for screening for malignant neoplasm of colon Category: Medical Plan: Patient is reminded about colonoscopy (5) Shoulder pain, left: Comment: 06/2024 Code(s): M25.512 - Pain in left shoulder Category: Medical (6) Right hip pain: Comment: 06/2024 Code(s): M25.551 - Pain in right hip Category: Medical (7) Insomnia: Code(s): G47.00 - Insomnia, unspecified Category: Medical Plan History of Present Illness The patient is a 59-year-old male presenting for a physical examination and management of chronic conditions. The patient has a history of cholelithiasis and underwent a cholecystectomy in March 2024. Post-surgery, he reports increased bowel movements and gassiness, which he attributes to dietary factors rather than the absence of the gallbladder. He also has hepatic steatosis, which was noted during previous evaluations. The patient reports hypercholesterolemia, with triglycerides elevated to 183 mg/dL. He is on a cholesterol management plan with a goal of LDL less than 130 mg/dL and triglycerides less than 150 mg/dL. The patient experiences sleep disturbances, reporting difficulty sleeping and averaging four hours of sleep per night. He attributes this to stress from family issues and past surgeries. He reports episodes of dizziness and lightheadedness, particularly in the mornings, which he associates with lack of sleep. The patient has a history of allergic rhinitis, experiencing nasal congestion and sneezing, which he attributes to environmental factors. He reports right hip and shoulder pain following a fall six months ago, with the hip pain persisting and exacerbated by physical activity. The shoulder pain has improved over time. Family history is significant for small cell lung cancer in his mother, who shortly after diagnosis. 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 - Substance use: Quit smoking eight months ago, consumes two beers a month - Family: Lives with father who has dementia, brother with substance abuse issues - Exercise: Rides mountain bike 10-15 miles a week Review of Systems - General: Reports difficulty sleeping, averaging four hours per night - Neurological: Reports dizziness and lightheadedness, denies syncope - Respiratory: Denies cough, dyspnea, or wheezing - Cardiovascular: Denies chest pain, palpitations, or edema - Gastrointestinal: Reports increased bowel movements, denies diarrhea - Musculoskeletal: Reports right hip and shoulder pain, denies other joint pain - Allergic/Immunologic: Reports nasal congestion and sneezing, denies known allergies Physical Exam General: Cooperative, healthy appearing, comfortable, no acute distress and well developed Orientation: Patient oriented x3 Limitations: No limitations Head: Normal to inspection Ears: Hearing grossly normal bilaterally, but ear wax blocking noted Nose: Normal external nose present, but patient reports feeling stuffy and sneezing Face and sinus: Normal facial exam Eyes: Appearance normal, both eyes and all related structures Neck: Normal visual inspection and Yes full ROM Respiratory: Normal respiratory effort and able to speak in complete sentences. Clear to auscultation bilaterally Cardiovascular: Regular rate and rhythm. Normal S1 and S2 GI: Normal to inspection. Soft to palpation and nontender. Reports increased bowel movements and occasional heartburn Skin: No rashes or lesions noted Neuro: Patient oriented x3. Reports occasional lightheadedness Extremities: Normal to inspection. Reports right hip pain and shoulder pain from a fall six months ago. No current snapping or popping in the shoulder. Results - Labs: Normal blood count, normal renal function, elevated triglycerides at 183 mg/dL, PSA, vitamin B12, folic acid, and thyroid levels within normal limits Plan Patient was informed and verbally consented to the use of an ambient scribe for clinic note documentation during this visit. 1. Cholelithiasis, Status Post Cholecystectomy The patient underwent a cholecystectomy in March 2024 for cholelithiasis. Post-surgery, he reports increased bowel movements and gassiness, which are managed with dietary modifications. 2. Hepatic Steatosis Hepatic steatosis was noted during previous evaluations, and the patient is advised to maintain a healthy diet and exercise regularly. 3. Hypercholesterolemia The patient is on a cholesterol management plan with dietary modifications and exercise, aiming for an LDL goal of less than 130 mg/dL and triglycerides less than 150 mg/dL. 4. Sleep Disturbance The patient reports difficulty sleeping, averaging four hours per night, attributed to stress from family issues and past surgeries. Sleep hygiene measures and the use of melatonin were discussed. 5. Dizziness The patient experiences dizziness and lightheadedness, particularly in the mornings, which he associates with lack of sleep. The possibility of ear wax contributing to dizziness was noted, and ear wax removal was discussed. 6. Allergic Rhinitis The patient experiences nasal congestion and sneezing, attributed to environmental factors. The use of [id number] allergy medications like Claritin was recommended. 7. Right Hip Pain The patient reports right hip pain following a fall six months ago, with pain persisting and exacerbated by physical activity. Options for management include physical therapy or imaging if symptoms persist. 8. Right Shoulder Pain The patient reports right shoulder pain following a fall six months ago, which has improved over time. No immediate intervention is planned unless symptoms worsen. 9. Preventative Care: Colon Cancer Screening The patient was reminded about the importance of colon cancer screening and the option of colonoscopy was discussed. Discussion Notes During the visit, we discussed the patient's history of cholelithiasis and the subsequent cholecystectomy, emphasizing the importance of dietary management to alleviate gastrointestinal symptoms. We reviewed the patient's hypercholesterolemia and the current management plan, including dietary modifications and exercise goals. The patient was advised on sleep hygiene practices and the potential use of melatonin to improve sleep quality. We addressed the patient's dizziness, noting the potential contribution of ear wax blockage, and discussed options for ear wax removal. The patient was informed about the use of [id number]-llm-ygoqjcy allergy medications for managing allergic rhinitis symptoms. We discussed the patient's musculoskeletal pain, considering physical therapy or imaging if symptoms persist. Preventative care measures, including colon cancer screening and vaccinations, were reviewed. Patient Instructions - Follow a low-fat diet and exercise regularly to manage cholesterol levels. - Maintain a regular sleep schedule and consider using melatonin as discussed. - Use ekte-agz-evjdvyx allergy medications like Claritin for nasal congestion and sneezing. - Monitor hip and shoulder pain; consider physical therapy if pain persists. - Schedule a colonoscopy for colon cancer screening. - Get a flu shot in January and ensure vaccinations are up to date. Orders: Orders Complete Blood Count Auto Diff Today E78.00 - Pure hypercholesterolemia, unspecified Free T4 (Free Thyroxine) Today E78.00 - Pure hypercholesterolemia, unspecified Thyroid Stimulating Hormone Today E78.00 - Pure hypercholesterolemia, unspecified Vitamin B12 and Folate Today E78.00 - Pure hypercholesterolemia, unspecified Prostate Specific Antigen Scr Today E78.00 - Pure hypercholesterolemia, unspecified Comprehensive Met. Panel Today E78.00 - Pure hypercholesterolemia, unspecified Lipid Panel Today E78.00 - Pure hypercholesterolemia, unspecified UA CC w/rflx Micro + Cult Today E78.00 - Pure hypercholesterolemia, unspecified, R30.0 - Dysuria
[2024-12-31 13:16] VITALS: BP 122/68; PULSE 101; TEMP 36.4; O2SAT 98; BMI 23.0
== END ==
LOC: HO.HMCH 12:49
PROVIDERS: PCP Internal Medicine; Visit Provider Internal Medicine
DX: Z00.00 Encounter for general adult medical examination without abnormal findings (principal); K76.0 Fatty (change of) liver, not elsewhere classified; E78.00 Pure hypercholesterolemia, unspecified; Z12.11 Encounter for screening for malignant neoplasm of colon; M25.512 Pain in left shoulder; M25.551 Pain in right hip; G47.00 Insomnia, unspecified